=== PATIENT | male | born 1965 | race Caucasian/White ===

== ENCOUNTER 2024-01-20 11:45 | Outpatient (AMB) | payer OTHER, MEDICARE, SELFPAY ==
--- NOTE | 2024-01-20 13:03 | AM.OFFWIN_ITS ---
Intake Vital Signs 3 01/20/24 13:06 Height 5 ft 2 in Weight 59.421 kg BMI 24.0 BP 138/94 H Blood Pressure Location Lt brachial Position Standing Pulse 67 Pulse Source Pulse Oximeter Temp 97.4 F Temp Source Temporal Artery Scan Pulse Oximetry (%) 98 Oxygen Delivery Method Room Air Intake Visit Reasons: rt side pain [phone] Intake Note: pt c/o RT side pain. Started after some lifting on Saturday Patient Tobacco Use Status: Former Tobacco user Allergies No Known Allergies Allergy (Verified 01/20/24 13:04) Do you need a note to return to daycare/school/sports/work: No HPI rt side pain [phone] 2 HPI0 Details Patient presents with right abdominal pain after some heavy lifting Saturday and morning. He did take naproxen 1 time with little relief. Has applied heat which helps some. He denies history of kidney stones, denies GI or symptoms, change in appetite or bowel or bladder habits. He does note history of inguinal hernia surgery in that area and a benign tumor removal on that side several years ago. [facility] Social History Patient Tobacco Use Status: Former Tobacco user Review of Systems Const Reports as per HPI and Reports no additional complaints Card Reports as per HPI and Reports no additional complaints Resp Reports as per HPI and Reports no additional complaints GI Reports as per HPI and Reports no additional complaints Reports no additional complaints and Reports as per HPI Musc Reports no additional complaints and Reports as per HPI Skin/Breast Denies lesions Neuro Reports no additional complaints and Reports as per HPI Physical Exam Vital Signs: Last Vital Signs Temp 97.4 F 01/20/24 13:06 Pulse 67 01/20/24 13:06 BP 138/94 H 01/20/24 13:06 Pulse Ox 98 01/20/24 13:06 Oxygen Delivery Method Room Air 01/20/24 13:06 BMI result Body Mass Index 24.0 Const General: cooperative, comfortable and no acute distress Orientation/consciousness: patient oriented x3 Resp Effort & Inspection: normal respiratory effort Auscultation: clear to auscultation bilaterally Cardio Rate: regular rate Rhythm: regular rhythm Heart sounds: S1 normal heart sound present and S2 normal heart sound present GI Other: Range of motion of trunk normal Palpation (GI): Soft to palpation, Tenderness to palpation present (GI) (Abdominal muscle of the right upper transverse abdominis area, no herniatio) with no rebound tenderness, no guarding, not rigid and No Rebound tenderness present Auscultation: normal bowel sounds Abdomen image: 2 1. Area of tenderness in the superficial muscle General: Yes no CVA tenderness Back/Spine/Pelvis Other: Range of motion of trunk normal pain is reproduced with engagement of lower abdomen muscles Back: no CVA tenderness Skin General skin exam: no rashes or lesions noted Neuro General: patient oriented x3 Assessment & Plan Assessment & Plan (1) Abdominal muscle strain: Code(s): S39.011A - Strain of muscle, fascia and tendon of abdomen, initial encounter Qualifiers: Encounter type: initial encounter Qualified Code(s): S39.011A - Strain of muscle, fascia and tendon of abdomen, initial encounter Plan: Trial course of naproxen, heat gentle stretching as tolerated. Activities as tolerated. ER if significant pain or worsening of symptoms. Return to clinic p.r.n. consider PT which I offered today, patient declined. Medications: New 2 naproxen 500 mg PO BID 30 tabs 0RF Coding Level of Care Code New Pt Level 3 (99623) Diagnoses Strain of abdominal muscle, initial encounter S39.011A Encounter type: initial encounter
[2024-01-20 13:06] VITALS: BP 138/94; PULSE 67; TEMP 36.3; O2SAT 98; BMI 24.0
== END 2024-01-20 13:41 | disposition home or self-care (01) ==
PROVIDERS: Visit Provider Physician Assistant
DX: S39.011A Strain of muscle, fascia and tendon of abdomen, initial encounter (principal)
CPT/HCPCS: 99203

== ENCOUNTER 2025-05-05 12:31 | Outpatient (AMB) | payer OTHER, MEDICARE, SELFPAY ==
[2025-05-05 12:33] VITALS: BP 126/78; PULSE 76; RESP 16; O2SAT 99; BMI 23.0
--- NOTE | 2025-05-05 12:33 | MHC.PC.OV ---
Vital Signs 05/05/25 12:33 Height 5 ft 2 in Weight 126 lb BMI 23.0 BP 126/78 Blood Pressure Location Rt brachial Position Sitting Respiration 16 Pulse 76 Pulse Source Pulse Oximeter Pulse Oximetry (%) 99 Oxygen Delivery Method Room Air Intake Visit Reasons: [employer]ER, EST CARE Intake Note: Pt is here today for New patient visit PE. Allergies No Known Allergies Allergy (Verified 05/05/25 12:36) Medication List - Last Reconciled 05/05/25 by JACOB Suarez loratadine (Claritin) 10 mg PO DAILY [magnesium PO] Tobacco use date assessed: 05/05/25 Dental Screening Dental Screen Date: 05/05/25 Did you have a dental visit in the last 12 months?: Yes Did you have a dental problem in the last 6 months where you did not have access to dental care?: No Was dental information given to patient?: Patient has dentist HPI T[employer]ER F[employer]ER, EST CARE HPI Details History of Present Illness The patient is a 60-year-old male presenting as a new patient to establish primary care after not having seen a provider in over 10 years. 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 He is on disability. He reports a history of restless leg syndrome and has previously tried ropinirole, which caused excessive sleepiness. He currently takes magnesium, which he reports helps the condition. The patient quit smoking almost 20 years ago. He has never had a colon screening. Health Maintenance The patient is overdue for age-appropriate screenings, having not seen a primary care provider in over a decade. Fasting labs, including a PSA, will be ordered. A referral will be placed for a colon cancer screening. He does not qualify for low-dose CT lung cancer screening due to his prolonged smoking cessation history of nearly 20 years. Social History - Tobacco Use: He quit smoking nearly 20 years ago. - Employment: He is on disability. Review of Systems - Neurological: Reports a history of restless leg syndrome. - Genitourinary: Reports urinary urgency. Denies urinary frequency. - Gastrointestinal: Denies abdominal pain, blood in stool, constipation, and diarrhea. - Cardiovascular: Denies chest pain. - Respiratory: Denies shortness of breath. - Psychiatric: Denies suicidal or homicidal ideation. Physical Exam General: Cooperative, healthy appearing, comfortable, no acute distress and well developed Orientation: Patient oriented x3 Limitations: No limitations Head: Normal to inspection Ears: Hearing grossly normal bilaterally Nose: Normal external nose present Face and sinus: Normal facial exam Eyes: Appearance normal, both eyes and all related structures Neck: Normal visual inspection and Yes full ROM Respiratory: Normal respiratory effort and able to speak in complete sentences. Clear to auscultation bilaterally Cardiovascular: Regular rate and rhythm. Normal S1 and S2 GI: Normal to inspection. Soft to palpation and nontender : Testicles without masses/lesions. Small left inguinal hernia Skin: No rashes or lesions noted Neuro: Patient oriented x3. Reports history of restless leg syndrome. Extremities: Club feet noted bilaterally. Right foot with toes 2 through 5 have a more flexed appearance. Left foot with toes 2 through 5 more flexed and somewhat disfigured. Dysfigured dorsal aspect of left foot with a very large bony prominence. Results Plan 1. Congenital Bilateral Clubfoot The patient has significant residual deformity from congenital clubfoot, particularly on the left foot, which has a large, protruding bony prominence on the dorsal aspect making shoe wear difficult. A referral will be made to Orthotics and Prosthetics for an evaluation and consideration of specialized shoes. He will continue using powder between his toes for fungal prevention. 2. Restless Leg Syndrome The patient reports a history of restless leg syndrome, for which he had an intolerance to ropinirole due to somnolence. He finds magnesium supplementation to be helpful. Iron studies will be checked as part of his initial lab work before considering other therapeutic options. 3. Urinary Urgency The patient reports urinary urgency without frequency. A PSA will be ordered for further evaluation. 4. physical exam with abnormal problems Discussion Notes I discussed with the patient that his foot deformities, particularly the large bony prominence on the left foot, likely make it difficult to wear regular shoes. I am referring him to orthotics and prosthetics for an evaluation to see if special shoes can be provided. Regarding his restless legs, I explained that I want to check his iron levels before considering any new medications, especially since a prior medication made him too sleepy. We reviewed his need for health screenings, as it has been over 10 years. I advised him that we will be ordering fasting labs, a PSA test to investigate his urinary urgency, and a referral for a colon screening, which he has never had. I also informed him that he does not qualify for lung cancer screening with a CAT scan because he quit smoking a long time ago. Patient Instructions - We will be referring you to a specialist for an evaluation for special shoes to accommodate your foot shape. - Please go to the lab for fasting blood tests. We will check your iron levels for the restless legs and a PSA level for prostate health. - Continue taking magnesium for your restless legs as it seems to be helping. - You will receive a referral to schedule a colon cancer screening, as this is recommended for your age. - Continue to use powder between your toes to help prevent fungal infections. [facility], [facility] Medical History Club foot Surgical History Hx of foot surgery Family History Father Dementia Father Alzheimer dementia Social History Housing: House Patient Tobacco Use Status: Former Tobacco user e-Cigarette/Vaping Use: Never Used service: No Current occupational status: disabled Cognitive needs: No Hearing needs: No Vision needs: Yes Questionnaire PHQ-9 Over the last 2 weeks, how often have you been bothered by any of the following problems? 1. Little interest or pleasure in doing things: not at all 2. Feeling down, depressed, or hopeless: not at all 3. Trouble falling or staying asleep, or sleeping too much: several days 4. Feeling tired or having little energy: several days 5. Poor appetite or overeating: not at all 6. Feeling bad about yourself - or that you are a failure or have let yourself or your family down: not at all 7. Trouble concentrating on things, such as reading the newspaper or watching television: not at all 8. Moving or speaking so slowly that other people could have noticed. Or the opposite - being so fidgety or restless that you have been moving around a lot more than usual: not at all 9. Thoughts that you would be better off or of hurting yourself in some way: not at all Total score: 2 Depression Screening Interpretation: Negative Depression Screening Done: Yes 52167 - PHQ-9 Billing: Yes Source: Developed by Drs. Jc Chirinos, Lizz Sullivan, Shreyas Tapia and colleagues, with an educational ramy from [employer]. Thrive Questionnaire Date Thrive assessed: 05/05/25 I am a: Patient What is your living situation today?: I have a steady place to live Within the past 12 months, did the food you bought not last and you didn't have the money to get more?: Never true Within the past 12 months, did you worry whether your food would run out before you got money to buy more?: Never true Do you have trouble paying for medicines?: No Do you have trouble getting transportation to medical appointments?: No Do you have trouble paying your heating and electricity bill?: No Do you have trouble taking care of your child, family member or friend?: No Do you have trouble with day-to-day activities such as bathing, preparing meals, shopping, managing finances, etc.?: No Are you currently unemployed and looking for a job?: No Are you interested in more education?: No Please select the resources that you would like help with: None Currently or been in a relationship where the following occur: No concerns reported THRIVE Score: 0 AUDIT C Alcohol Use Questionnaire (AUDIT-C) 1. How often do you have a drink containing alcohol?: 2-4 times a month 2. How many drinks containing alcohol do you have on a typical day when you are drinking?: 1 or 2 3. How often do you have six or more drinks on one occasion?: Less than monthly Total Score: 3 Score Reviewed/Action Taken: Yes WES-7 AMB Questionnaire WES-7 Date WES - 7 assessed: 05/05/25 Feeling nervous, anxious, or on edge: 1 = Several days Not being able to stop or control worryin = Not at all Worrying too much about different things: 0 = Not at all Trouble relaxin = Several days Being so restless that it is hard to sit still: 0 = Not at all Becoming easily annoyed or irritable: 0 = Not at all Feeling afraid as if something awful might happen: 0 = Not at all Total WES-7 score (0-4 normal; 5-9 mild; 10-14 moderate; 15-21 severe): 2 Source: Developed by Drs. Jc Chirinos, Lizz Sullivan, Shreyas Tapia and colleagues, with an educational ramy from [employer]. WES-7 Assessment Billing WES-7 Assessment Tool: WES-7 Assessment 75051 Physical exam (Primary Care) Vital Signs: Last Vital Signs Pulse 76 05/05/25 12:33 Resp 16 05/05/25 12:33 BP 126/78 05/05/25 12:33 Pulse Ox 99 05/05/25 12:33 Oxygen Delivery Method Room Air 05/05/25 12:33 BMI result Body Mass Index 23.0 Tobacco/Smoking Status: Tobacco use Status Tobacco use date assessed 05/05/25 05/05/25 12:43 Patient Tobacco Use Status Former Tobacco user 05/05/25 12:43 e-Cigarette/Vaping Use Never Used 05/05/25 12:43 PHQ-9: PHQ-9 Score PHQ-9: Total score 2 05/05/25 12:43 Depression Screening Interpretation: Negative Thrive Assessment: Date of Thrive Assessment Date Thrive assessed 05/05/25 05/05/25 12:43 Currently or been in a relationship where the following occur: No concerns reported Coding Level of Care Code Est Pt Prev Care 40-64y(73421) Diagnoses Screening for colon cancer Z12.11 Screening for prostate cancer Z12.5 Club foot Q66.89 Encounter for routine adult physical exam with abnormal findings Z00.01 Restless leg syndrome G25.81 Additional Codes WES-7 Assessment Billing - WES-7 Assessment Tool: WES-7 Assessment 27551 ([id number]) PHQ-9 - 79822 - PHQ-9 Billing: Yes ([id number]) Assessment & Plan Assessment & Plan (1) Screening for colon cancer: Code(s): Z12.11 - Encounter for screening for malignant neoplasm of colon Category: Medical (2) Screening for prostate cancer: Code(s): Z12.5 - Encounter for screening for malignant neoplasm of prostate Category: Medical (3) Club foot: Code(s): Q66.89 - Other specified congenital deformities of feet Category: Medical (4) Encounter for routine adult physical exam with abnormal findings: Code(s): Z00.01 - Encounter for general adult medical examination with abnormal findings Category: Medical Plan: . (5) Restless leg syndrome: Code(s): G25.81 - Restless legs syndrome Category: Medical Plan . Orders: Orders Complete Blood Count Auto Diff Today Z00.00 - Encounter for general adult medical examination without abnormal findings UA CC w/rflx Micro + Cult Today Z00.00 - Encounter for general adult medical examination without abnormal findings Lipid Panel Today Z00.00 - Encounter for general adult medical examination without abnormal findings Prostate Specific Antigen Scr Today Z12.5 - Encounter for screening for malignant neoplasm of prostate Comprehensive [place]. Panel Fast Today Z00.00 - Encounter for general adult medical examination without abnormal findings TSH reflex Free T4 Today Z00.00 - Encounter for general adult medical examination without abnormal findings Ferritin Today G25.81 - Restless legs syndrome IRON PROFILE Today G25.81 - Restless legs syndrome Referrals Orthopedics Referral Q66.89 - Other specified congenital deformities of feet Gastroenterology Referral Z12.11 - Encounter for screening for malignant neoplasm of colon
== END 2025-05-05 13:46 | disposition home or self-care (01) ==
LOC: HO.HMCC 12:31
PROVIDERS: Visit Provider Nurse Practitioner Family
DX: Z12.11 Encounter for screening for malignant neoplasm of colon (principal); Z12.5 Encounter for screening for malignant neoplasm of prostate; Q66.89 Other specified congenital deformities of feet; Z00.01 Encounter for general adult medical examination with abnormal findings; G25.81 Restless legs syndrome

== ENCOUNTER → 2025-05-05 12:31 | Outpatient (BNVA) | payer OTHER, MEDICARE, SELFPAY | PROVIDERS: Visit Provider Nurse Practitioner Family | DX: Z12.11 Encounter for screening for malignant neoplasm of colon (principal); Z00.01 Encounter for general adult medical examination with abnormal findings; Z12.5 Encounter for screening for malignant neoplasm of prostate; Q66.89 Other specified congenital deformities of feet; G25.81 Restless legs syndrome | CPT/HCPCS: 96127 ==

== ENCOUNTER 2025-05-08 07:56 | Outpatient (REF) | payer OTHER, SELFPAY ==
[2025-05-08 11:05] LABS: MANUAL DIFF FLAG NO
[2025-05-08 11:10] LABS: Hematocrit 43.8 % (42.0-52.0); Hemoglobin 14.6 g/dl (14.0-18.0); Imm Gran Abs Auto 0.01 X10*3/uL (0.00-0.03); Imm Gran Pct Auto 0.2 % (0.0-0.4); Lymphocytes Absolute Auto 1.2 X10*3/uL (1.2-4.9); Mean Corpuscular HGB Conc 33.3 g/dl (31.0-36.0); Mean Corpuscular Hemoglobin 30.8 pg (27.0-33.0); Mean Corpuscular Volume 92.4 fL (80.0-98.0); NRBC Abs Auto 0.000 X10*3/uL (0.0-0.012); NRBC Pct Auto 0.0 /100WBC (0.0-0.2); Platelet Count 193 X10*3/uL (160-400); Red Blood Count 4.74 X10*6/uL (4.60-5.80); White Blood Count 5.5 X10*3/uL (4.8-10.8)
[2025-05-08 11:11] LABS: Appearance Urine Clear; Glucose Urine UA Negative (Negative); PH 6.5 (5.0-9.0); Specific Gravity - Urine 1.020 (1.005-1.025)
[2025-05-08 11:43] LABS: Alanine Aminotransferase 36 U/L (0-40); Albumin Level 4.7 g/dL (3.5-5.0); Alkaline Phosphatase 69 U/L (39-117); Anion Gap 11 (12-20); Aspartate Amino Transferase 32 U/L (5-37); Blood Urea Nitrogen 21 mg/dL (9-16); Calcium 8.9 mg/dL (8.4-10.2); Carbon Dioxide 31 mmol/L (22-29); Chloride 104 mmol/L (96-108); Cholesterol 230 mg/dL (<200); Estimated Glomerular Filt Rate > 60; HDL Cholesterol 67 mg/dL (>40); Iron 98 mcg/dL (45-160); Percent Iron Saturation 41 % (15-50); Potassium 3.8 mmol/L (3.3-5.1); Sodium 142 mmol/L (135-145); Total Iron Binding Capacity 237 mcg/dL (228-428); Total Protein 7.0 g/dL (6.5-8.0); Triglycerides 86 mg/dL (<150); Unsaturated Iron Binding 139 ug/dL
[2025-05-08 12:05] LABS: Ferritin 254 ng/mL (20-250)
[2025-05-08 12:41] LABS: Free T4 (Free Thyroxine) 0.98 ng/dL (0.71-1.85)
== END 2025-05-08 07:57 | disposition home or self-care (01) ==
LOC: HO.HMGCLDS 07:56
PROVIDERS: PCP Nurse Practitioner Family; Visit Provider Nurse Practitioner Family
DX: Z00.00 Encounter for general adult medical examination without abnormal findings (principal); Z12.5 Encounter for screening for malignant neoplasm of prostate; G25.81 Restless legs syndrome; Z13.6 Encounter for screening for cardiovascular disorders; Z13.29 Encounter for screening for other suspected endocrine disorder
CPT/HCPCS: 36415; 80053; 80061; 81003; 82728; 83540; 84153; 84439; 84443; 85025